=== PATIENT | male | born 1945 | race Caucasian/White ===

== ENCOUNTER 2020-04-22 08:00 | Outpatient (CLI) | payer MEDICARE | END 2020-04-22 23:59 | disposition home or self-care (01) | LOC: STAR 08:00 → EDSTATUS 04-25 13:30 | PROVIDERS: ATTEND Urology | DX: Z01.812 Encounter for preprocedural laboratory examination (principal); Z20.828 Contact with and (suspected) exposure to other viral communicable diseases; N20.0 Calculus of kidney | CPT/HCPCS: 36415; 87635 ==

== ENCOUNTER → 2021-04-07 | Outpatient (CLI) | payer MEDICARE | END | disposition home or self-care (01) | LOC: CVU 09:50 | PROVIDERS: ATTEND Internal Medicine Cardiovascular Disease | DX: I08.0 Rheumatic disorders of both mitral and aortic valves (principal); R09.89 Other specified symptoms and signs involving the circulatory and respiratory systems; E78.5 Hyperlipidemia, unspecified; I65.23 Occlusion and stenosis of bilateral carotid arteries; I11.9 Hypertensive heart disease without heart failure | CPT/HCPCS: 93306; 93356; 93880 ==